=== PATIENT | female | born 1930 | race American Indian/Alaskan Native ===

== ENCOUNTER 2018-01-27 18:35 | Inpatient (IN) | payer BC, MEDICARE ==
[2018-01-27 18:59] VITALS: BMI 35.1
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
[2018-01-27 20:47] LABS: ALB/GLOB RATIO 1.3 (1.1-1.8); ALT/SGPT 84 U/L (7-56); AST/SGOT 49 U/L (14-36); BLOOD UREA NITROGEN 9 mg/dL (7-21); CALCIUM 9.6 mg/dL (8.4-10.5); GFR NON-AFRICAN AMERICAN > 60
[2018-01-28 00:50] LABS: BASO # 0.01 K/mm3 (0.0-2.0); BASO % 0.2 % (0.0-3.0); EOS # 0.1 (0.0-0.7); EOS % 2.4 % (1.5-5.0); GRAN # 1.78 (1.4-6.5); GRAN % 42.6 % (50.0-68.0); HEMOGLOBIN 12.3 g/dL (12.0-16.0); LYMPH # 1.7 (1.2-3.4); LYMPH % 41.6 % (22.0-35.0); MEAN CELL VOLUME 86.9 fl (80.0-105.0); MEAN CORPUSCULAR HEMOGLOBIN 27.7 pg (25.0-35.0); MEAN CORPUSCULAR HGB CONC 31.9 g/dl (31.0-37.0); MEAN PLATELET VOLUME 9.8 fl (7.0-11.0); MONO # 0.6 (0.1-0.6); MONO % 13.2 % (1.0-6.0); RBC 4.44 10^6/uL (3.5-6.1); RED CELL DISTRIBUTION WIDTH 13.7 % (11.5-14.5); WHITE BLOOD COUNT 4.2 10^3/ul (4.5-11.0)
[2018-01-28 02:09] LABS: URINE BILIRUBIN SMALL (NEGATIVE); URINE BLOOD TRACE-INTACT (NEGATIVE); URINE GLUCOSE (UA) NEGATIVE (NEGATIVE); URINE LEUKOCYTE ESTERASE NEGATIVE Leu/uL (NEGATIVE); URINE PROTEIN TRACE mg/dL (<30 mg/dL); URINE UROBILINOGEN 0.2 E.U./dL (<1 E.U./dL)
[2018-01-28 02:15] LABS: URINE APPEARANCE CLEAR (CLEAR); URINE COLOR YELLOW (YELLOW)
[2018-01-28 02:32] LABS: URINE BACTERIA RARE (NEG); URINE EPITHELIAL CELLS 0 - 2 /hpf (0-5); URINE RBC 0 - 2 /hpf (0-2); URINE WBC 0 - 2 /hpf (0-6)
[2018-01-28] MEDS ORDERED: Magnesium Oxide 400 mg Tab UD PO STA (05:07)
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
--- NOTE | 2018-01-28 09:52 | RAD ---
Date of service: 01/27/2018 HISTORY: medical screening COMPARISON: No prior. FINDINGS: LUNGS: No active pulmonary disease. PLEURA: No significant pleural effusion identified, no pneumothorax apparent. CARDIOVASCULAR: Normal. OSSEOUS STRUCTURES: No significant abnormalities. VISUALIZED UPPER ABDOMEN: Normal. OTHER FINDINGS: None. IMPRESSION: No active disease.
[2018-01-28 11:41] LABS: FREE T4 1.77 ng/dL (0.78-2.19)
--- NOTE | 2018-01-28 11:47 | CARD ---
APPROVED REPORT Date of service: 01/27/2018 EKG Measurement Heart [id number] <Conclusion> Sinus rhythm with 1st degree AV block Right bundle branch block Left anterior fascicular block Bifascicular block Abnormal ECG
--- NOTE | 2018-01-28 18:04 | PN ---
DATE: 01/28/2018 SUBJECTIVE: The patient is 87 years old, seen and examined, lying in bed, seems to be comfortable, but as per nurse, she is agitated, tried to get out of bed. So for now, she is on one-to-one. PHYSICAL EXAMINATION: VITAL SIGNS: She is afebrile, pulse 78, respirations 20, blood pressure 113/46. LUNGS: Bilateral fair airflow. No rhonchi or crackle. HEART: S1 and S2 audible. ABDOMEN: Soft. Nontender. No rebound. No guarding. NEUROLOGICAL: The patient is awake and alert, but confused and disoriented. LABORATORY EXAM: TSH is 0.01 and T4 is 1.77. ASSESSMENT: 1. Altered mental status. 2. Metabolic encephalopathy. 3. Dementia. 4. Hyperparathyroidism. 5. Hyperlipidemia. 6. Anxiety disorder. PLAN: Currently, the patient is on aspirin 81 daily, we will continue that. Continue her on atorvastatin, methimazole, analgesic. So I spoke to Meteorology Teacher. They will reach out to the family and make further disposition plan. Neftali Kathleen MD
--- NOTE | 2018-01-30 01:27 | PN ---
DATE: 01/29/2018 SUBJECTIVE: The patient is 87 years old, seen and examined. She is lying in bed, become agitated at times. Eating fair. PHYSICAL EXAMINATION VITAL SIGNS: She is afebrile, pulse 74, respirations 18, blood pressure 110/54. LUNGS: Bilateral fair airflow. No rhonchi or crackle. HEART: S1 and S2 audible. ABDOMEN: Soft. Nontender. No rebound. No guarding. NEUROLOGICAL: She is awake, alert, oriented, communicative. LABORATORY DATA: WBC is 4.2, hemoglobin 12, hematocrit 38, platelet 209. TSH is 0.02. Urine has no growth. ASSESSMENT: 1. Altered mental status. 2. High risk to be alone, unable to care for herself. 3. Recently has episode of urinary tract infection, was treated by antibiotics. 4. Hyperthyroidism. 5. Generalized osteoarthritis. PLAN: Discussed with social psychologist. They will speak to the family for her placement issue. Then, we will decide about her disposition plan after social psychologist discuss with the patient's family. Neftali Kathleen MD
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
--- NOTE | 2018-01-30 12:31 | PN ---
DATE: 01/30/2018 SUBJECTIVE: The patient is 87 years old, seen and examined. Seemed to be confused, disoriented. Not in any distress. PHYSICAL EXAMINATION: VITAL SIGNS: She is afebrile, pulse 66, respirations 24, blood pressure 130/70. LUNGS: Bilateral good airflow. No rhonchi or crackle. HEART: S1 and S2 audible. ABDOMEN: Soft. Nontender. No rebound. No guarding. NEUROLOGICAL: She is awake and alert, but hardly oriented to place. ASSESSMENT: 1. Worsening dementia. 2. Hypertension. 3. Hyperthyroidism. 4. Hyperlipidemia. PLAN: The patient will continue current medications. Possible discharge plan for today after Operations Logistics Analyst have meeting with the family. We will follow up the patient in the a.m. Neftali Kathleen MD
--- NOTE | 2018-01-30 16:16 | PCM.FALL ---
Post Fall Progress Note - Post Fall Fall Date: 01/30/18 Fall Time: 04:00 - Post Fall Exam Vital Sign: Temp Pulse Resp BP Pulse Ox 97.8 F 66 24 130/70 97 01/30/18 06:00 01/30/18 06:00 01/30/18 06:00 01/30/18 06:00 01/30/18 06:00 Skull Exam: Negative for: Scalp wound, Scalp hematoma, Scalp depression, Ridge in skull Eye Exam: Positive for: Pupils equal, Pupils reactive Ear Exam: Negative for: Discharge, Bleeding Nose Exam: Negative for: Discharge, Bleeding Skin Exam: Positive for: Colour. Negative for: Lacerations, Grazes, Bruising Mouth Exam: Negative for: Tongue bitten, Teeth dislodge Neck Exam: Negative for: Tenderness, Tingling, Weakness Spinal Exam: Negative for: Tenderness, Tingling, Weakness Chest Exam: Negative for: Difficulty breathing, Tenderness in collar bones, Tenderness in ribs Abdomen Exam: Negative for: Tenderness Pelvic Exam: Negative for: Tenderness, Hematuria Arm Exam: Negative for: Deformity, Alteration in range of movement Leg Exam: Negative for: Deformity, Alteration in range of movement Impression/Plan: Pt seen and examined after fall. - Fall witnessed by nurse. - Pt never experienced a LOC. - Pt did not suffer any head trauma at any time during the event. - Pt did not exhibit any seizure like activity. - pt was not confused and did not have a change in mental status Physical Exam - atraumatic, normocephalic - full neuro and MSK exam showed no deficits - AAOX2, pt not oriented to time, which is her baseline - sacral region and buttocks, no obvious signs of bruising, no pain on palpation Mechanical Fall - Neuro checks q4h for the next 20 hours - nursing informed to monitor pt for swelling, bruising, and/or pain - placed on high risk fall precautions - pt primary care physician made aware - chart reviewed, pt is not on anticoagulation- no need for imaging at this time Pineda Hernandez PGY1
--- NOTE | 2018-01-31 13:48 | PN ---
DATE: 01/31/2018 SUBJECTIVE: The patient is 87 years old, seen and examined, sitting in chair, seems to be comfortable. She is confused, disoriented, agitated at times. PHYSICAL EXAMINATION: VITAL SIGNS: She is afebrile, pulse 80, respiration 16, blood pressure 105/49. LUNGS: Bilateral good airflow. No rhonchi or crackle. HEART: S1, S2 audible. ABDOMEN: Soft, nontender. No rebound, no guarding. NEUROLOGICAL: She is awake and alert, but confused and disoriented. ASSESSMENT: 1. Severe dementia. 2. Hypertension. 3. Hyperthyroidism, stable. 4. Generalized osteoarthritis. 5. Hyperlipidemia. 6. Deconditioning. PLAN: coordinator of health services have discussion with the patient's family who wants subacute rehab long-term placement, paperwork is in the progress. Once the decision is made, we will make disposition. Neftali Kathleen MD
--- NOTE | 2018-02-01 14:09 | PN ---
DATE: 02/01/2018 SUBJECTIVE: She is comfortable in bed, in no acute distress. She is confused, disoriented. No agitation at the moment. No events overnight. No cough. No shortness of breath. No chest pain. PHYSICAL EXAMINATION: GENERAL: Comfortable in bed, in no acute distress. VITAL SIGNS: Temperature 98.7, heart rate 80 per minute, respiratory rate 15 per minute, blood pressure 110/70. HEENT: Pallor positive. NECK: No lymphadenopathy. CHEST: Air entry present and equal, bilateral. No added sounds. CARDIOVASCULAR: S1, S2 normal. No murmur. No gallop. ABDOMEN: Soft, nontender. No hepatosplenomegaly. EXTREMITY: No edema. NEURO: Awake, alert, not oriented, confused. LABORATORY DATA: Labs reviewed. White count 4.2, hemoglobin 12.3, hematocrit 38.6, platelet 209, granulocyte 42%, lymphocyte 41%. ASSESSMENT: 1. Severe dementia. 2. Hypertension. 3. Osteoarthritis. 4. Deconditioning. 5. Leukopenia. 6. Lymphocytosis. PLAN: We will continue current medications, Xanax 0.25 mg p.o. t.i.d. p.r.n. for agitation, Lipitor 20 mg daily, aspirin to continue 81 mg daily, senna, Colace, lorazepam IV for agitation, Topamax 10 mg p.o. daily. She is awaiting placement. [employer] contacted. Discussed with the staff nurse. Leslye Hansen MD
[2018-02-01] MEDS: Petrolatum Oint Foilpak (5 gm) TOP ONE (18:48)
[2018-02-02] MEDS: Petrolatum Oint Foilpak (5 gm) TOP ONE (01:57)
--- NOTE | 2018-02-02 17:54 | PN ---
DATE: 02/02/2018 SUBJECTIVE: Patient is 87 years old, seen and examined, sitting in chair, seems to be comfortable, gets agitated at times, confused, disoriented, does not have insight of her problem. PHYSICAL EXAMINATION: VITAL SIGNS: She is afebrile, pulse 77, respirations 20, blood pressure 115/73. LUNGS: Bilateral fair airflow. No rhonchi or crackle. HEART: S1 and S2 audible. ABDOMEN: Soft, nontender. No rebound. No guarding. NEUROLOGIC: She is awake and alert, but not oriented. Answers simple questions. ASSESSMENT: 1. Altered mental status. 2. Hypertension. 3. Hyperthyroidism. 4. Deconditioning. 5. Difficulty walking. PLAN: We will continue patient on current medications, social services assistant are in the process of placement, and there will be discussion with the patient's family once the arrangement is made make a discharge plan. Neftali Kathleen MD
--- NOTE | 2018-02-03 13:12 | PN ---
DATE: 02/03/2018 SUBJECTIVE: The patient is 87 years old, seen and examined, lying in bed, seems to be comfortable. Confused, disoriented, agitated at times. PHYSICAL EXAMINATION: VITAL SIGNS: She is afebrile, pulse 74, respirations 18, blood pressure 122/51. LUNGS: Bilateral fair airflow. No rhonchi or crackle. HEART: S1 and S2 audible. ABDOMEN: Soft. Nontender. No rebound. No guarding. NEUROLOGICAL: She is awake and alert, but confused and disoriented. ASSESSMENT: 1. Advanced dementia. 2. Hypertension. 3. History of chronic anemia. 4. Hyperthyroidism. 5. Hyperlipidemia. PLAN: We will continue the patient on current medication. [employer] are in the process of making arrangement for placement. Neftali Kathleen MD
--- NOTE | 2018-02-04 17:03 | PN ---
DATE: 02/04/2018 FOLLOWUP SUBJECTIVE: Requested by primary team because the patient was on haloperidol, which was initiated by Dr. Gonzales over initial evaluation and possible adjustment of the medications. The patient presented to be less confused to compare with the previous interaction. The patient knows that she is in the hospital. The patient does not know what is the day today. The patient reported that she feels okay. Denied any thoughts of killing herself or others. The patient reported that she has a headache. Besides that, the patient expressed no concerns. No agitation. No aggression. Vital signs are stable. Temperature 97.8, pulse is 72, blood pressure 113/56, respirations 20, oxygen saturation is 97. Medications reviewed. The patient is on Tylenol, Xanax, aspirin, Lipitor, Colace, Ativan and methimazole. Labs reviewed. Most recent was from 01/28/2018. MENTAL STATUS EXAMINATION: The patient presented to be alert, pleasant, intermittent eye contact. Speech was underproductive, low volume. Mood described as okay. Affect was constricted, but reactive. Mood congruent. Thought process mildly disorganized, but the patient is not acutely psychotic. The patient denied hearing voices, denied seeing things. Denied paranoid ideation. The patient denied any thoughts of harming herself or others. Denied intents or plan. Insight and judgment seems to be limited. Impulses are well controlled. IMPRESSION: Delirium and dementia. PLAN: This selling underwriter will discontinue haloperidol. We will observe the patient with no antipsychotic medications. The patient presented to be comfortable. No agitation. No aggression. We will follow up and advise accordingly. No need for this selling underwriter to see the patient on daily basis. We will see the patient every other day. If the patient tolerates discontinuation of the haloperidol well, the patient does not need to be on antipsychotic medication. If the patient will become agitated or the patient would have any psychotic symptoms, we will consider the smallest dose of Seroquel. Thank you very much for letting me participate in the care of your patient. Mckenna Stahl MD
--- NOTE | 2018-02-04 23:00 | PN ---
DATE: 02/04/2018 SUBJECTIVE: The patient is an 87-year-old, seen and examined, resting in the bed comfortably, gets agitated at times. Paper work in progress for subacute rehab to long-term placement. PHYSICAL EXAMINATION: VITAL SIGNS: She is afebrile, pulse 72, respirations 20, blood pressure 113/56. LUNGS: Bilateral fair airflow. No rhonchi or crackle. HEART: S1 and S2 audible. ABDOMEN: Soft, nontender. No rebound. No guarding. NEUROLOGIC: The patient is awake and alert, but confused and disoriented. ASSESSMENT AND PLAN: 1. Severe dementia. 2. Hypertension. 3. Deconditioning. 4. Difficulty walking. PLAN: We will continue patient on current medications and continue physical therapy. human resources services specialist are in the process of making arrangement for discharging to subacute rehab. Neftali Kathleen MD
--- NOTE | 2018-02-05 12:27 | PN ---
DATE: 02/05/2018 SUBJECTIVE: The patient is 87 years old, seen and examined, sitting in chair. Seems to be comfortable. Gets agitated at times at the nurse. Otherwise, doing well. PHYSICAL EXAMINATION: VITAL SIGNS: She is afebrile, pulse 70, respirations 18, blood pressure 109/56. LUNGS: Bilateral fair airflow. No rhonchi or crackle. HEART: S1 and S2 audible. ABDOMEN: Soft. Nontender. No rebound. No guarding. NEUROLOGICAL: She is awake and alert, but confused and disoriented. ASSESSMENT: 1. Severe dementia with agitation at times. 2. Hypertension. 3. Hyperlipidemia. PLAN: Currently, the patient is on aspirin 81 daily. We will continue her on Colace, Lipitor. She has a history of hyperthyroidism, so she is on Tapazole for that. We will continue. [employer] are in the process of making arrangement for subacute rehab . Neftali Kathleen MD
[2018-02-05 15:20] VITALS: RESP 20
--- NOTE | 2018-02-06 00:54 | PCM.FALL ---
<Deb Wylie - Last Filed: 02/06/18 00:49> Post Fall Progress Note - Post Fall Fall Date: 02/06/18 Fall Time: 00:38 Description of Fall: Patient was confused, and went down gently on her bilateral buttock to the floor. 2 nurses, Nicole and Alexis, witnessed the falls. No seizure likely activity, LOC. Patient awake, answering questions, oriented to self only (but that is patient's baseline). Denies pain, dizziness. - Post Fall Exam Vital Sign: Temp Pulse Resp BP Pulse Ox 97.6 F 87 20 148/68 98 02/05/18 14:00 02/05/18 14:00 02/05/18 14:00 02/05/18 14:00 02/05/18 14:00 Skull Exam: Negative for: Scalp wound, Scalp hematoma, Scalp depression Eye Exam: Positive for: Pupils equal, Pupils reactive Ear Exam: Negative for: Discharge, Bleeding Nose Exam: Negative for: Discharge, Bleeding Skin Exam: Negative for: Colour, Lacerations, Grazes Mouth Exam: Negative for: Tongue bitten, Teeth dislodge Neck Exam: Negative for: Tenderness, Weakness Spinal Exam: Negative for: Tenderness, Weakness Chest Exam: Negative for: Difficulty breathing, Tenderness in collar bones, Tenderness in ribs Abdomen Exam: Negative for: Tenderness Pelvic Exam: Negative for: Tenderness, Hematuria Arm Exam: Negative for: Deformity, Alteration in range of movement Leg Exam: Negative for: Deformity, Alteration in range of movement Impression/Plan: 87 year old female who was admitted for worsening dementia (not on AC), had a witnessed fall. As per staff, patient has been agitated, trying to get out of bed. Patient then gently lowered self to floor, landing on her buttocks. No hitting head, LOC, shaking movements of body, tongue biting. Patient is alert, awake, oriented to self only (baseline as per staff/prior notes). High risk fall precautions. Will give Haldol 0.5 mg IM. And reassess. Case seen and discussed with Dr Yeung. <Cristhian Yeung - Last Filed: 02/06/18 22:34> Post Fall Progress Note - Post Fall Exam Vital Sign: Temp Pulse Resp BP Pulse Ox 97.4 F L 74 20 110/49 L 99 02/06/18 14:00 02/06/18 14:00 02/06/18 14:00 02/06/18 14:00 02/06/18 14:00 Attending/Attestation - Attestation I have personally seen and examined this patient.: Yes I have fully participated in the care of the patient.: Yes I have reviewed all pertinent clinical information, including history, physical exam and plan: Yes
--- NOTE | 2018-02-06 11:10 | PN ---
DATE: 02/06/2018 SUBJECTIVE: The patient was followed up today. Shortly, medical team asked to reconsult this patient because the patient was on Haldol and nursing homes will be not accepting the patient on that medication. The patient's haloperidol was on hold. This information writer observed the patient for 24 hours. The patient had episodes of agitation as well as confusion, trying to climb off the bed. At present moment, the patient needs to be on antipsychotic medication in order to make sure that the patient will be not in danger to self or others. This information writer reviewed the notes from overnight. The patient tried to climb off the bed and almost fell. The patient was seen today. The patient presented to be tearful. The patient confused, talking nonsense. The patient is not aware where she is. Asked extra blankets. Vital signs seems to be stable. Temperature 97.6, pulse is 87, blood pressure 148/68, respirations 20, oxygen saturation is 98. Medications reviewed. The patient is on Tylenol, Xanax 0.25 mg three times a day as needed. The patient is on aspirin, Lipitor, Colace, Ativan, Tapazole. Seroquel will be given as 12.5 mg at the nighttime as needed for agitation. Labs were reviewed. Notes were reviewed. Most likely, the patient needs to have placement. [facility] accepted the patient. MENTAL STATUS EXAMINATION: The patient presented to be alert, tearful, talking nonsense, but not agitated. Thought process seems to be circumstantial. Thought content, the patient denied hearing voices, denied seeing things, but the patient is confused. Denied thoughts of harming herself or others. Insight and judgment seemed to be impaired. Impulses are better controlled. IMPRESSION: Delirium on dementia. PLAN: Seroquel 12.5 mg at the nighttime as needed for agitation and aggression. Continue current management. Continue current medications. The patient is waiting for bed available at [facility]. The patient pose no imminent danger to self or others. The patient needs to be followed up with psychiatrist at the snf within 48-72 hours. Should you have any questions, give me a call back. This information writer will sign off. Mckenna Stahl MD [facility] # [phone]
[2018-02-06 14:28] VITALS: BP 110/49; PULSE 74; TEMP 97.4; O2SAT 99
--- NOTE | 2018-02-07 07:21 | DS ---
HISTORY OF PRESENT ILLNESS: The patient is 87 years old who was admitted with altered mental status. The patient was evaluated by psychiatrist. She was started on Seroquel 12.5 at bedtime and Xanax as needed. human services case manager were involved to send her to subacute rehab to going to long-term placement. There was back and forth discussion with daughter, Meng Nelson by but they found placement in outside the town, but the patient's daughter did not like that idea and she decided eventually to take her home. PHYSICAL EXAMINATION: GENERAL: Today, she is awake, alert, oriented and agitated at times. VITAL SIGNS: She is afebrile, pulse 74, respirations 20 and blood pressure 110/49. LUNGS: Bilateral good airflow. No rhonchi or crackle. HEART: S1 and S2 audible. ABDOMEN: Soft and nontender. No rebound. No guarding. NEUROLOGICAL: The patient is awake and alert, but not oriented. ASSESSMENT: 1. Dementia. 2. Unstable gait. 3. Hyperthyroidism. PLAN: The patient is being discharged home. She was given prescription of Seroquel 12.5 at bedtime, Xanax 0.25 t.i.d. p.r.n. for agitation, and she resume her medication including methimazole and simvastatin. I will follow this patient as outpatient. Neftali Kathleen MD
== END 2018-02-06 20:25 | disposition home or self-care (01) | DRG 884 ==
LOC: ED 18:35 → ERH 22:10 → 5RNO 01-28 06:41
PROVIDERS: ADMIT Internal Medicine; ATTEND Internal Medicine
DX: F03.91 Unspecified dementia, unspecified severity, with behavioral disturbance (principal); G93.41 Metabolic encephalopathy; F05 Delirium due to known physiological condition; Z91.83 Wandering in diseases classified elsewhere; I10 Essential (primary) hypertension; E78.5 Hyperlipidemia, unspecified; R26.2 Difficulty in walking, not elsewhere classified; E21.3 Hyperparathyroidism, unspecified; F41.9 Anxiety disorder, unspecified; M15.9 Polyosteoarthritis, unspecified; R45.1 Restlessness and agitation; E05.90 Thyrotoxicosis, unspecified without thyrotoxic crisis or storm; Z91.81 History of falling; Z87.440 Personal history of urinary (tract) infections

== ENCOUNTER 2018-02-10 18:31 | Inpatient (IN) | payer MEDICARE ==
[2018-02-10 19:12] VITALS: BMI 23.4
--- NOTE | 2018-02-10 20:38 | ED PDOC ---
Arrival/HPI - General Chief Complaint: Chest Pain Time Seen by Provider: 02/10/18 19:43 Historian: Patient - History of Present Illness Narrative History of Present Illness (Text): 02/10/18 20:00 87 year old female, whose past medical history includes dementia, presents to the emergency department complaining of intermittent left-sided lower chest discomfort since this morning. Patient reports some radiation to the left back. She denies any complaints at the present time. Patient denies any fever, chills, shortness of breath, nausea, vomiting, diarrhea, urinary symptoms, neck pain, headache, dizziness, or any other complaints. PMD: Dr. Kathleen Time/Duration: Other (this morning) Symptom Onset: Sudden Activities at Onset: Light Context: Home Past Medical History - Provider Review Nursing Documentation Reviewed: Yes - Infectious Disease Hx of Infectious Diseases: None - Reproductive Menopause: Yes - Cardiac Hx Cardiac Disorders: Yes Hx Hypertension: Yes - Pulmonary Hx Respiratory Disorders: Yes Hx Bronchitis: Yes - Neurological Hx Neurological Disorder: Yes Hx Dementia: Yes - HEENT Hx HEENT Disorder: No - Renal Hx Renal Disorder: No - Endocrine/Metabolic Hx Endocrine Disorders: Yes Hx Hypothyroidism: Yes - Hematological/Oncological Hx Blood Disorders: No - Integumentary Hx Dermatological Disorder: No - Musculoskeletal/Rheumatological Hx Musculoskeletal Disorders: Yes Hx Arthritis: Yes - Gastrointestinal Hx Gastrointestinal Disorders: No - Genitourinary/Gynecological Hx Genitourinary Disorders: Yes Hx Urinary Tract Infection: Yes (Current) - Psychiatric Hx Psychophysiologic Disorder: Yes Hx Anxiety: Yes Hx Depression: Yes Hx Substance Use: No - Surgical History Hx Appendectomy: Yes Other/Comment: ear - Anesthesia Hx Anesthesia: Yes Hx Anesthesia Reactions: No - Suicidal Assessment Feels Threatened In Home Enviroment: No Family/Social History - Physician Review Nursing Documentation Reviewed: Yes Family/Social History: No Known Family HX Smoking Status: Never Smoked Hx Alcohol Use: No Hx Substance Use: No Allergies/Home Meds Allergies/Adverse Reactions: Allergies dust Allergy (Uncoded 02/11/18 00:11) SHORTNESS OF BREATH seasonal Allergy (Uncoded 02/11/18 00:11) SHORTNESS OF BREATH Home Medications: Home Meds Medication Instructions Recorded Confirmed RX: Alprazolam 0.5 mg PO PRN PRN 04/02/13 02/11/18 RX: Aspirin [Aspirin Chewable] 81 mg PO DAILY 04/02/13 02/11/18 RX: Docusate Sodium [Stool 100 mg PO PRN PRN 04/02/13 02/11/18 Softener] RX: Methimazole 10 mg PO DAILY 04/02/13 02/11/18 RX: Simvastatin 40 mg PO DAILY 04/02/13 02/11/18 Review of Systems - Physician Review All systems were reviewed & negative as marked: Yes - Review of Systems Constitutional: absent: Fevers, Other (Chills) Respiratory: absent: SOB Cardiovascular: Chest Pain Gastrointestinal: absent: Diarrhea, Nausea, Vomiting Genitourinary Female: absent: Dysuria, Frequency, Hematuria Musculoskeletal: Back Pain. absent: Neck Pain Neurological: absent: Headache, Dizziness Physical Exam Vital Signs Reviewed: Yes Vital Signs Temp Pulse Resp BP Pulse Ox 02/10/18 19:06 98.4 F 83 18 148/86 97 Temperature: Afebrile Blood Pressure: Normal Pulse: Regular Respiratory Rate: Normal Appearance: Positive for: Well-Appearing, Non-Toxic, Comfortable, Other (Elderly female) Pain Distress: None Mental Status: Positive for: Alert and Oriented X 3 - Systems Exam Head: Present: Atraumatic, Normocephalic Pupils: Present: PERRL Extroacular Muscles: Present: EOMI Conjunctiva: Present: Normal Mouth: Present: Moist Mucous Membranes Neck: Present: Normal Range of Motion Respiratory/Chest: Present: Clear to Auscultation, Good Air Exchange. No: Respiratory Distress, Accessory Muscle Use Cardiovascular: Present: Regular Rate and Rhythm, Normal S1, S2. No: Murmurs Abdomen: No: Tenderness, Distention, Peritoneal Signs Back: Present: Normal Inspection. No: CVA Tenderness Upper Extremity: Present: Normal Inspection. No: Cyanosis, Edema Lower Extremity: Present: Normal Inspection. No: Edema Neurological: Present: GCS=15, CN II-XII Intact, Speech Normal, Motor Func Grossly Intact, Normal Sensory Function Skin: Present: Warm, Dry, Normal Color. No: Rashes Psychiatric: Present: Alert, Oriented x 3, Normal Insight, Normal Concentration Medical Decision Making ED Course and Treatment: 02/10/18 20:00 Impression: 87 year old female presents complaining of intermittent left-sided chest discomfort since this morning with some radiation to the left back. Plan: -- EKG -- Labs -- Chest X-ray -- Urinalysis -- Reassess and disposition Prior Visits: Notes and results from previous visits were reviewed. Patient was last seen in the emergency department on 01/27/18 presents complaining of AMS, excessive sleepiness, and worsening combative behavior. Patient was admitted. Progress Notes: 02/10/18 20:49 CXR Impression: As read by me, no acute process. 02/10/18 22:02 EKG shows NSR at 87 BPM with first degree AV Block, incomplete RBBB, nonspecific ST/T wave changes. Interpreted by me. 02/10/18 23:[address] Kathleen who is aware and agrees with the plan. Accepts patient into her service. - Lab Interpretations I have reviewed the lab results: Yes - RAD Interpretation Radiology Orders: 02/10/18 20:26 CHEST PORTABLE [RAD] Stat - EKG Interpretation Interpreted by ED Physician: Yes Type: 12 lead EKG - Scribe Statement The provider has reviewed the documentation as recorded by the Pat Toney Provider Scribe Attestation: All medical record entries made by the Pat were at my direction and personally dictated by me. I have reviewed the chart and agree that the record accurately reflects my personal performance of the history, physical exam, medical decision making, and the department course for this patient. I have also personally directed, reviewed, and agree with the discharge instructions and disposition. Disposition/Present on Arrival - Present on Arrival Any Indicators Present on Arrival: No History of DVT/PE: No History of Uncontrolled Diabetes: No Urinary Catheter: No History of Decub. Ulcer: No History Surgical Site Infection Following: None - Disposition Have Diagnosis and Disposition been Completed?: Yes Diagnosis: Chest pain Disposition: HOSPITALIZED Disposition Time: 23:09 Patient Problems: Current Active Problems Problem Status Onset Chest pain Acute Condition: STABLE
[2018-02-10 21:44] LABS: HEMOGLOBIN 13.9 g/dL (12.0-16.0); MEAN CELL VOLUME 87.6 fl (80.0-105.0); MEAN CORPUSCULAR HEMOGLOBIN 28.3 pg (25.0-35.0); MEAN CORPUSCULAR HGB CONC 32.3 g/dl (31.0-37.0); MEAN PLATELET VOLUME 10.1 fl (7.0-11.0); RBC 4.91 10^6/uL (3.5-6.1); RED CELL DISTRIBUTION WIDTH 13.8 % (11.5-14.5); WHITE BLOOD COUNT 4.8 10^3/uL (4.5-11.0)
[2018-02-10 21:56] LABS: PARTIAL THROMBOPLASTIN TIME 31.9 Seconds (25.1-36.5); PROTHROMBIN TIME 11.4 SECONDS (9.4-12.5)
[2018-02-10 22:04] LABS: ALB/GLOB RATIO 1.2 (1.1-1.8); ALBUMIN 4.3 g/dL (3.0-4.8); ALT/SGPT 23 U/L (7-56); AST/SGOT 24 U/L (14-36); BLOOD UREA NITROGEN 13 mg/dL (7-21); CALCIUM 9.6 mg/dL (8.4-10.5); GFR NON-AFRICAN AMERICAN > 60
[2018-02-10 22:36] LABS: TROPONIN I < 0.01 ng/mL
[2018-02-11 07:00] LABS: TROPONIN I < 0.01 ng/mL
[2018-02-11 09:49] LABS: HDL CHOLESTEROL 44 mg/dL (29-60)
[2018-02-11 10:00] LABS: LDL CHOLESTEROL 101 mg/dL (0-129)
--- NOTE | 2018-02-11 11:38 | RAD ---
Date of service: 02/10/2018 HISTORY: Back pain COMPARISON: 01/27/2018 FINDINGS: LUNGS: No active pulmonary disease. PLEURA: No significant pleural effusion identified, no pneumothorax apparent. CARDIOVASCULAR: Cardiomegaly. No evidence of acute, significant cardiovascular disease. Atherosclerotic calcifications identified primarily aortic arch. OSSEOUS STRUCTURES: No significant abnormalities. VISUALIZED UPPER ABDOMEN: Normal. OTHER FINDINGS: Prominent skin fold should not be mistaken for small right pneumothorax. IMPRESSION: No active disease. No significant interval change compared to the prior examination(s).
--- NOTE | 2018-02-11 12:02 | CARD ---
APPROVED REPORT Date of service: 02/10/2018 EKG Measurement Heart [id number] <Conclusion> Sinus rhythm with 1st degree AV block Right bundle branch block Left anterior fascicular block Abnormal ECG
[2018-02-11 14:00] LABS: TROPONIN I < 0.01 ng/mL
--- NOTE | 2018-02-11 15:19 | HP ---
HISTORY OF PRESENT ILLNESS: The patient is an 87-year-old who was brought to emergency room when she mentioned to her daughter that she is having left-sided chest pain. The patient is confused and disoriented. She was recently discharged after she was found to have altered mental status. Family requested for long-term placement but later on they decided to take her home. When I examined the patient, she is chest pain free, she is sitting comfortably asking for food. She does not have any nausea or vomiting. No fever or chills. No shortness of breath. PAST MEDICAL HISTORY: Significant for: 1. Severe dementia. 2. Hypertension. 3. Hypothyroidism. 4. Generalized osteoarthritis. ALLERGIES: SHE HAS SEASONAL ALLERGIES ONLY. MEDICATIONS AT HOME: She is on aspirin 81 mg daily, Colace 100 mg daily, atorvastatin 20 mg daily. She is on Seroquel 12.5 at bedtime, methimazole 10 mg daily and Xanax t.i.d. p.r.n. PHYSICAL EXAMINATION: GENERAL: On examination, she is awake, alert and oriented. She states she is hungry and wants to eat. VITAL SIGNS: She is afebrile, pulse 77, respirations 20, blood pressure 129/57. LUNGS: Bilateral fair airflow. No rhonchi or crackle. HEART: S1, S2 audible. ABDOMEN: Soft, nontender. No rebound. No guarding. NEUROLOGIC: The patient is awake and alert, confused, disoriented. EXTREMITIES: Bilateral legs, no edema. LABORATORY DATA: WBC 4.8, hemoglobin 13.9, hematocrit 43.0, platelets 235. PT 11.4, INR 1.00. Chemistry: Sodium 141, potassium 4.0, chloride 104, CO2 of 29, BUN 13, creatinine 0.7, blood sugar 197. LFTs are within normal limits. Her total cholesterol 155, LDL is 101. ASSESSMENT: 1. Severe dementia. 2. Noncardiac chest pain. 3. History of hypertension. 4. . PLAN: The patient has two troponins negative, I will order one stat. If third is negative, she will be discharged home later on today. Neftali Kathleen MD
--- NOTE | 2018-02-11 15:51 | CON ---
DATE: 02/11/2018 TYPE OF DICTATION: Cardiac evaluation, questionable history of chest pain. BRIEF CLINICAL HISTORY: An 87-year-old female with a past medical history significant for hyperlipidemia, hyperthyroidism, yesterday felt not good. She denies any chest pain, denies any shortness of breath, denies any palpitations. She called the daughter, and daughter called the ambulance. Though in ER note it is mentioned that the patient was complaining of intermittent chest pain, but the patient persistently denies any chest pain. PAST MEDICAL HISTORY: Significant as mentioned, hypertension and hyperthyroidism. SOCIAL HISTORY: Denies any history of alcohol abuse. CURRENT MEDICATIONS: The patient is taking at home , aspirin 81 mg daily and Xanax 0.5 p.r.n. at bedtime. Tylenol 325 mg p.r.n., simvastatin 40 mg daily, Seroquel 12.5 mg daily, methimazole 10 mg daily, Colace stool softener 100 mg p.o. b.i.d. p.r.n. ALLERGIES: ALLERGY TO DUST, ALLERGY TO SEASONAL. PAST SURGICAL HISTORY: No surgical history. FAMILY HISTORY: Noncontributory at this stage of the life. EKG shows normal sinus, right bundle-branch block, incomplete, and anterior hemiblock. PHYSICAL EXAMINATION GENERAL: Height of the patient is 5 feet, weight of the patient is 120 pounds, and body mass index is 23.4 kg per meter square. VITAL SIGNS: Heart rate 77, blood pressure 129/77. HEENT: PERRLA. Extraocular muscles intact. NECK: Supple. No carotid bruits or thyromegaly. CHEST: Clear to auscultation. HEART: S1 and S2 regular. ABDOMEN: Soft. EXTREMITIES: Clubbing and cyanosis negative. LABORATORY DATA: WBC 4.8, hemoglobin 13.8, hematocrit of 43.0, platelet count 235. PT 11.5, INR 1. Chemistry showed sodium 141, potassium 4, chloride 104, carbon dioxide 20, anion gap of 12, BUN 13, creatinine 0.7. Troponin 0.01 x2, negative. IMPRESSION: An 87-year-old female admitted because of not feeling good. EKG showed normal sinus, incomplete right bundle, anterior hemiblock. The patient is persistently refusing any history of chest pain, though ER documentation mentioned the patient was complaining of intermittent chest pain. X-ray showed essentially normal, question mild congestion, though it is under . An 87-year-old female with borderline hypertension, hyperthyroidism, hyperlipidemia, admitted with nonspecific complaint, needs to rule out HI. First troponin is negative. We will do one troponin now and one troponin at 2 p.m. We will get echo to assess LV function, a lipid profile, TSH, hemoglobin A1c. Further recommendation depending upon hospital course. We will follow with you. Thank you, Dr. Kathleen, for providing us the opportunity in taking care of the patient, Juan Jose Dobson. Kirstie Murillo MD
--- NOTE | 2018-02-11 18:31 | CARD ---
APPROVED REPORT Date of service: 02/11/2018 EXAM: Two-dimensional and M-mode echocardiogram with Doppler and color Doppler. INDICATION Chest Pain 2D DIMENSIONS Left Atrium (2D)3.0 (1.6-4.0cm)IVSd1.1 (0.7-1.1cm) LVDd3.2 (3.9-5.9cm)PWd1.1 (0.7-1.1cm) LVDs2.2 (2.5-4.0cm)FS (%) 31.2 % LVEF (%)60.2 (>50%) M-Mode DIMENSIONS Aortic Root1.90 (2.2-3.7cm)Aortic Cusp Exc.1.20 (1.5-2.0cm) Aortic Valve AoV Peak Wokywlvt292.0cm/Juventino Peak GR.16mmHg Mitral Valve MV E Fifmzxsa753.0cm/sMV A Darhaefz130.0cm/sE/A ratio0.8 TDI E/Lateral E'0.0E/Medial E'0.0 Tricuspid Valve TR Peak [id number]/sRAP [id number] Peak Gr.36mmHg [id number] LEFT VENTRICLE The left ventricle is normal size. There is normal left ventricular wall thickness. The left ventricular function is normal.EF-60-65% There is normal LV segmental wall motion. Transmitral Doppler flow pattern is Grade III-reversible restrictive diastolic dysfunction. No left ventricle thrombus noted on this study. There is no ventricular septal defect visualized. There is no left ventricular aneurysm. There is no mass noted in the left ventricle. RIGHT VENTRICLE The right ventricle is mildly dilated. There is normal right ventricular wall thickness. Systolic function is mildly reduced. ATRIA The left atrium size is normal. The right atrium is borderline dilated. The interatrial septum is intact with no evidence for an atrial septal defect. AORTIC VALVE The aortic valve is calcified but opens well. There is trace to mild aortic regurgitation, eccentric Jet. Aortic sclerosis VS Mild There is no aortic valvular vegetation. MITRAL VALVE The mitral valve is thickened but opens well. Mitral annular calcification is mild to moderate. Mitral regurgitation is trace to mild. There is no mitral valve stenosis. There is no evidence of mitral valve prolapse. TRICUSPID VALVE The tricuspid valve leaflets are thickened , but open well. There is moderate tricuspid regurgitation.RVSP_46 mmof hg. There is no tricuspid valve stenosis. There is no tricuspid valve prolapse or vegetation. PULMONIC VALVE The pulmonic valve is mildly thickened. There is mild to moderate pulmonic valvular regurgitation. There is no pulmonic valvular stenosis. GREAT VESSELS The aortic root is normal in size. The ascending aorta is normal in size. The pulmonary artery is normal. The IVC is normal in size and collapses >50% with inspiration. PERICARDIAL EFFUSION There is no pleural effusion. There is no pericardial effusion. <Conclusion> There is normal left ventricular wall thickness. There is trace to mild aortic regurgitation, eccentric Jet. Aortic sclerosis VS Mild There is moderate tricuspid regurgitation.RVSP_46 mmof hg. There is mild to moderate pulmonic valvular regurgitation. The IVC is normal in size and collapses >50% with inspiration. There is no pericardial effusion.
--- NOTE | 2018-02-12 08:47 | CP.PCM.PN ---
Subjective - Date & Time of Evaluation Date of Evaluation: 02/12/18 Time of Evaluation: 06:45 - Subjective Subjective: Awake, alert, confuse, feels cold, no distress Reason for consultation and follow up: Cardiac evaluation of intermittent chest discomfort questionable chest pain, history of dementia Seen and examined by me and Dr. Murillo Objective - Vital Signs/Intake and Output Vital Signs (last 24 hours): Temp Pulse Resp BP Pulse Ox 97.4 F L 66 18 112/61 96 02/12/18 06:00 02/12/18 06:00 02/12/18 06:00 02/12/18 06:00 02/12/18 06:00 Intake and Output: 02/12/18 02/12/18 06:59 18:59 Intake Total 0 Balance 0 - Medications Medications: Current Medications Alprazolam (Xanax) 0.25 mg PO TID PRN; Protocol PRN Reason: Anxiety Stop: 02/18/18 10:01 Last Admin: 02/11/18 10:16 Dose: 0.25 mg Aspirin (Aspirin Chewable) 81 mg PO DAILY [facility] Last Admin: 02/11/18 10:16 Dose: 81 mg Atorvastatin Calcium (Lipitor) 20 mg PO DIN [facility] Last Admin: 02/11/18 18:34 Dose: Not Given Docusate Sodium (Colace) 100 mg PO DAILY [facility] Last Admin: 02/11/18 10:16 Dose: 100 mg Methimazole (Tapazole) 10 mg PO DAILY [facility] Last Admin: 02/11/18 10:16 Dose: 10 mg Quetiapine Fumarate (Seroquel) 12.5 mg PO HS [facility]; Protocol - Labs Labs: 02/10/18 21:30 02/10/18 21:30 PT 11.4 SECONDS (9.4-12.5) 02/10/18 21:30 INR 1.00 02/10/18 21:30 APTT 31.9 Seconds (25.1-36.5) 02/10/18 21:30 - Constitutional Appears: Non-toxic, No Acute Distress - Head Exam Head Exam: NORMAL INSPECTION, NORMOCEPHALIC - Eye Exam Eye Exam: Normal appearance Pupil Exam: NORMAL ACCOMODATION - ENT Exam ENT Exam: Mucous Membranes Dry - Respiratory Exam Respiratory Exam: Decreased Breath Sounds, Clear to Ausculation Bilateral, NORMAL BREATHING PATTERN - Cardiovascular Exam Cardiovascular Exam: REGULAR RHYTHM, +S1, +S2 Additional comments: Telemetry NSR - GI/Abdominal Exam GI & Abdominal Exam: Soft, Normal Bowel Sounds - Extremities Exam Extremities Exam: Full ROM - Neurological Exam Neurological Exam: Alert, Awake Additional comments: confuse - Psychiatric Exam Psychiatric exam: Normal Affect, Normal Mood - Skin Skin Exam: Dry, Normal Color, Warm Assessment and Plan - Assessment and Plan (Free Text) Assessment: A 87 year old female who came in to the ER due to intermittent left side chest d iscomfort started cook's assistant prior to admission. History of dementia, hypertension,hyperlipidemia, hypothyroidism,osteoarthritis. Troponin x 3 negative. Rule out acute myocardial infarction. ECHO done- LVEF 60%, Mild aortic regurgitation, Aortic sclerosis vs Mild , Moderate tricuspid regurgi tation,Moderate pulmonic valvular regurgitation, No pericardial effusion. Chest pain free. Plan: ECHO done- LVEF 60% Mild aortic regurgitation, Aortic sclerosis vs Mild Moderate tricuspid regurgitation Moderate pulmonic valvular regurgitation No pericardial effusion Troponin negative x 3 Heart rate controlled Blood pressure controlled Denies chest pain or shortness of breath May discharge from cardiac standpoint Continue current treatment Continue current medications Chart reviewed Will follow up Plan and treatment discussed with Dr. Murillo
[2018-02-12 12:49] LABS: HEMOGLOBIN 11.7 g/dL (12.0-16.0); MEAN CELL VOLUME 85.7 fl (80.0-105.0); MEAN CORPUSCULAR HEMOGLOBIN 27.8 pg (25.0-35.0); MEAN CORPUSCULAR HGB CONC 32.4 g/dl (31.0-37.0); MEAN PLATELET VOLUME 9.6 fl (7.0-11.0); RBC 4.21 10^6/uL (3.5-6.1); RED CELL DISTRIBUTION WIDTH 13.3 % (11.5-14.5); WHITE BLOOD COUNT 3.3 10^3/uL (4.5-11.0)
[2018-02-12 12:50] LABS: ALB/GLOB RATIO 1.1 (1.1-1.8); ALBUMIN 3.6 g/dL (3.0-4.8); ALT/SGPT 26 U/L (7-56); AST/SGOT 25 U/L (14-36); BLOOD UREA NITROGEN 11 mg/dL (7-21); CALCIUM 9.3 mg/dL (8.4-10.5); GFR NON-AFRICAN AMERICAN > 60
--- NOTE | 2018-02-12 14:40 | PN ---
DATE: 02/12/2018 HISTORY OF PRESENT ILLNESS: The patient is 87 years old, seen and examined, seems to be comfortable now; but according to nurse last night, she was very agitated, throwing things, yelling, screaming.shay dyer was called and she had to be restrained for her and other te herrera Got in touch with her daughter who is asking for long-term placement, although she refused last time. The patient was initially admitted with chest pain. Her workup is negative. PHYSICAL EXAMINATION: GENERAL: On examination, she looks comfortable now. VITAL SIGNS: She is afebrile, pulse , respirations 18, and blood pressure 112/61. LUNGS: Bilateral fair airflow. No rhonchi or crackles. HEART: S1 and S2 audible. ABDOMEN: Soft and nontender. No rebound. No guarding. NEUROLOGIC: She is awake and alert, but confused and disoriented. LABORATORY DATA: Her LDH is 382, CK is 37, and troponin is 0.07. ASSESSMENT: 1. Dementia with confusion and agitation. 2. Noncardiac chest pain. 3. Hypothyroidism. 4. Hypertension. PLAN: The patient is being admitted. We will discontinue telemetry. Start her on Risperdal in the morning around 6 o'clock and she will get therapy at night. resident services manager are arranged for long-term placement. Neftali Kathleen MD MTDDebbie
[2018-02-12] MEDS: Enoxaparin 30 mg Syringe SC SCH (18:23)
[2018-02-12 20:47] LABS: URINE BILIRUBIN NEGATIVE (NEGATIVE); URINE BLOOD NEGATIVE (NEGATIVE); URINE GLUCOSE (UA) NEGATIVE (NEGATIVE); URINE LEUKOCYTE ESTERASE NEGATIVE Leu/uL (NEGATIVE); URINE PROTEIN NEGATIVE mg/dL (<30 mg/dL); URINE UROBILINOGEN 0.2 E.U./dL (<1 E.U./dL)
[2018-02-12 20:56] LABS: URINE APPEARANCE CLEAR (CLEAR); URINE COLOR YELLOW (YELLOW)
--- NOTE | 2018-02-13 06:58 | CP.PCM.PN ---
Subjective - Date & Time of Evaluation Date of Evaluation: 02/13/18 Time of Evaluation: 06:20 - Subjective Subjective: Awake, alert, confuse, no distress Reason for consultation and follow up: Cardiac evaluation of intermittent chest discomfort questionable chest pain, history of dementia Seen and examined by me and Dr. Murillo Objective - Vital Signs/Intake and Output Vital Signs (last 24 hours): Temp Pulse Resp BP Pulse Ox 97.1 F L 99 H 19 116/59 L 96 02/12/18 18:00 02/12/18 18:00 02/12/18 18:00 02/12/18 18:00 02/12/18 06:00 Intake and Output: 02/12/18 02/13/18 18:59 06:59 Intake Total 430 400 Balance 430 400 - Medications Medications: Current Medications Alprazolam (Xanax) 0.25 mg PO TID PRN; Protocol PRN Reason: Anxiety Stop: 02/18/18 10:01 Last Admin: 02/12/18 19:49 Dose: 0.25 mg Aspirin (Aspirin Chewable) 81 mg PO DAILY [facility] Last Admin: 02/12/18 10:58 Dose: 81 mg Atorvastatin Calcium (Lipitor) 20 mg PO DIN [facility] Last Admin: 02/12/18 18:23 Dose: 20 mg Docusate Sodium (Colace) 100 mg PO DAILY [facility] Last Admin: 02/12/18 10:58 Dose: 100 mg Enoxaparin Sodium (Lovenox) 30 mg SC DAILY [facility]; Protocol Last Admin: 02/12/18 18:23 Dose: 30 mg Methimazole (Tapazole) 10 mg PO DAILY [facility] Last Admin: 02/12/18 10:58 Dose: 10 mg Quetiapine Fumarate (Seroquel) 12.5 mg PO HS [facility]; Protocol Last Admin: 02/13/18 04:40 Dose: Not Given Risperidone (Risperdal Tab) 0.25 mg PO BID [facility]; Protocol Last Admin: 02/12/18 18:23 Dose: 0.25 mg - Labs Labs: 02/12/18 12:15 02/12/18 12:15 PT 11.4 SECONDS (9.4-12.5) 02/10/18 21:30 INR 1.00 02/10/18 21:30 APTT 31.9 Seconds (25.1-36.5) 02/10/18 21:30 - Constitutional Appears: Non-toxic, No Acute Distress - Head Exam Head Exam: NORMAL INSPECTION, NORMOCEPHALIC - Eye Exam Eye Exam: Normal appearance Pupil Exam: NORMAL ACCOMODATION - ENT Exam ENT Exam: Mucous Membranes Dry - Respiratory Exam Respiratory Exam: Decreased Breath Sounds, Clear to Ausculation Bilateral, NORMAL BREATHING PATTERN - Cardiovascular Exam Cardiovascular Exam: +S1, +S2 - GI/Abdominal Exam GI & Abdominal Exam: Soft, Normal Bowel Sounds - Extremities Exam Extremities Exam: Full ROM, Normal Capillary Refill - Neurological Exam Neurological Exam: Alert, Awake Additional comments: confuse - Skin Skin Exam: Dry, Normal Color, Warm Assessment and Plan - Assessment and Plan (Free Text) Assessment: A 87 year old female who came in to the ER due to intermittent left side chest discomfort started early childhood associate prior to admission. History of dementia, hypertension,hyperlipidemia, hypothyroidism,osteoarthritis. Troponin x 3 negative. Rule out acute myocardial infarction. ECHO done- LVEF 60%, Mild aortic regurgitation, Aortic sclerosis vs Mild , Moderate tricuspid regurgitation,Moderate pulmonic valvular regurgitation, No pericardial effusion. Chest pain free. Plan: Cardiac status stable Heart rate controlled Blood pressure controlled Denies chest pain or shortness of breath Off and on agitation, started on Risperdal May discharge from cardiac standpoint Continue current treatment Continue current medications Chart reviewed Discharge planning, awaiting LTC placement Will follow up Plan and treatment discussed with Dr. Murillo
--- NOTE | 2018-02-13 09:50 | PN ---
DATE: 02/12/2018 REASON FOR CONSULTATION AND FOLLOWUP: Cardiac evaluation, admitted with intermittent chest pain, dementia, so far no evidence of acute [place]. This note is in addition to dictated by our nurse practitioner. The patient had echocardiography done yesterday that revealed ejection fraction 60%-65%, normal wall motion, [id number] aortic regurgitation, eccentric jet, aortic sclerosis, mild aortic stenosis, moderate tricuspid regurgitation, RV systolic pressure of 46, [id number] pulmonary insufficiency, [id number] mitral regurgitation, moderate tricuspid regurgitation, RV systolic pressure of 46, no evidence of acute [place], and history of dementia. RECOMMENDATIONS: We will discontinue telemetry, continue aggressive medical treatment including aspirin and anti-cholesterol medication, and history of hyperthyroidism, on methimazole. TSH is 0.02. So far, no evidence of acute [place]. asymptomatic patient demented, no cardiac complaint at this time. We will treat medically. Continue baby aspirin. We will continue DVT prophylaxis as well, DVT prophylaxis to prevent in the hospital. Discharge planning. Thank you Dr. Kathleen for providing us the opportunity in taking care of the patient, Bronson Nelson. Kirstie Murillo MD
[2018-02-13] MEDS: Enoxaparin 30 mg Syringe SC SCH (11:06)
--- NOTE | 2018-02-13 16:08 | PN ---
DATE: 02/13/2018 REASON FOR CONSULTATION AND FOLLOWUP: Cardiac evaluation, chest pain. This note is an addition to dictated by nurse practitioner. So far no evidence of acute [place]. Patient underwent echo yesterday that showed ejection fraction 60%, mild aortic regurgitation, aortic sclerosis with mild , moderate tricuspid regurgitation, moderate pulmonary insufficiency. No pericardial effusion. RECOMMENDATIONS: Continue aggressive medical treatment, possible discharge planning. CVS status is stable. No further cardiac workup is planned or warranted. Continue aggressive medical treatment. So far no evidence of acute [place]. No complaint of angina symptoms. Troponin remains flat. Good LV function. Kirstie Murillo MD
--- NOTE | 2018-02-13 19:25 | DS ---
HISTORY OF PRESENT ILLNESS: The patient is 87 years old who was brought in because of chest pain. Cardiac workup is negative. Three troponins are negative. Echocardiogram is unremarkable. The patient has been confused, disoriented and combative, was on soft wrist restraints. The patient was seen and examined, doing okay. No nausea. No vomiting. No diarrhea. PHYSICAL EXAMINATION: VITAL SIGNS: She is afebrile. Pulse 66, respirations 18, blood pressure 127/71. LUNGS: Bilateral fair airflow. No rhonchi or crackle. HEART: S1 and S2, audible. ABDOMEN: Soft and nontender. No rebound. No guarding. NEUROLOGIC: She is awake and alert, but confused, disoriented. ASSESSMENT: 1. Noncardiac chest pain. 2. Severe dementia. 3. Hypothyroidism. 4. Anxiety, dementia with agitation. PLAN: Currently, she is on Xanax 0.25 mg t.i.d. p.r.n. She is on methimazole. Risperdal has been added. She is on 0.25 mg Risperdal twice a day and 0.25 at bedtime. administrative services assistant are in the process of making arrangement for subacute rehab for long-term placement. Once arrangement is made, the patient will be discharged. Neftali Kathleen MD
--- NOTE | 2018-02-13 23:20 | CON ---
DATE: 02/13/2018 HISTORY OF PRESENT ILLNESS: In short, the patient is an 87-year-old -Bh[place] female with reported history of dementia. The patient was admitted on the medical site for evaluation of chest discomfort. Psych consult was called because the patient was in delirium stage, was aggressive. This documentation writer is very familiar with this patient from previous hospitalization here in [place] which took place in 01/2018. As per report, the patient was confused, the patient was combative, trying to kick people overnight, needed to have soft restraints in her upper extremities. During this documentation writer's evaluation, the patient was calm, cooperative, seems to be comfortable. The patient reported that she feels fine. The patient was not able to understand the concept of depressed mood. The patient said that she does not know where she is, but she is here for "some evaluation." The patient reported that she lives in [place] with her family with her and kids. This documentation writer is not sure if this is correct information or not. The patient was not able to understand question about hallucinations or delusions. This documentation writer reviewed vital signs, seem to be stable. Temperature 97.9, pulse is 66, blood pressure 127/71, respirations 18, saturation is 100%. Medications reviewed. The patient on Xanax 0.25 mg three times day as needed, aspirin, Lipitor, Colace, Lovenox, methimazole. Risperdal was started by medical team 0.25 mg twice a day as well as Seroquel 12.5 mg at nighttime, we will discontinue that. It is always better for the patient to be on one medication, that is why this documentation writer added Risperdal 0.25 mg at nighttime instead of Seroquel. Labs reviewed. Coagulation reviewed. Chemistry reviewed. MENTAL STATUS EXAMINATION: The patient presented to be alert, somewhat confused, comfortable, not agitated. The patient knows that she is here for some evaluation. The patient was not able to understand the question about mood. Thought process seems to be disorganized. Thought content, the patient was agitated earlier but not with this documentation writer. Insight and judgment seems to be limited. Impulses are unpredictable. IMPRESSION: The patient has delirium on dementia. PLAN: Continue Risperdal. Family should be involved. This documentation writer is not sure if the patient has power of attorney at law. Physical therapy recommended. We will follow up with you and advise accordingly. Thank you very much for letting me participate in care of your patient. Mckenna Stahl MD
--- NOTE | 2018-02-14 08:00 | CP.PCM.PN ---
Subjective - Date & Time of Evaluation Date of Evaluation: 02/14/18 Time of Evaluation: 07:20 - Subjective Subjective: No distress, Awake, confuse Reason for consultation and follow up: Cardiac evaluation of intermittent chest discomfort questionable chest pain, history of dementia Seen and examined by me and Dr. Murillo Objective - Vital Signs/Intake and Output Vital Signs (last 24 hours): Temp Pulse Resp BP Pulse Ox 98.0 F 105 H 18 109/56 L 99 02/13/18 22:00 02/13/18 22:00 02/13/18 22:00 02/13/18 22:00 02/13/18 22:00 - Medications Medications: Current Medications Alprazolam (Xanax) 0.25 mg PO TID PRN; Protocol PRN Reason: Anxiety Stop: 02/18/18 10:01 Last Admin: 02/13/18 15:25 Dose: 0.25 mg Aspirin (Aspirin Chewable) 81 mg PO DAILY [facility] Last Admin: 02/13/18 11:03 Dose: 81 mg Atorvastatin Calcium (Lipitor) 20 mg PO DIN [facility] Last Admin: 02/13/18 18:40 Dose: 20 mg Docusate Sodium (Colace) 100 mg PO DAILY [facility] Last Admin: 02/13/18 11:05 Dose: 100 mg Enoxaparin Sodium (Lovenox) 30 mg SC DAILY [facility]; Protocol Last Admin: 02/13/18 11:06 Dose: 30 mg Methimazole (Tapazole) 10 mg PO DAILY [facility] Last Admin: 02/13/18 11:06 Dose: 10 mg Risperidone (Risperdal Tab) 0.25 mg PO BID [facility]; Protocol Last Admin: 02/13/18 18:40 Dose: 0.25 mg Risperidone (Risperdal Tab) 0.25 mg PO HS [facility]; Protocol Last Admin: 02/13/18 21:51 Dose: 0.25 mg - Labs Labs: 02/12/18 12:15 02/12/18 12:15 PT 11.4 SECONDS (9.4-12.5) 02/10/18 21:30 INR 1.00 02/10/18 21:30 APTT 31.9 Seconds (25.1-36.5) 02/10/18 21:30 - Constitutional Appears: Non-toxic, No Acute Distress - Head Exam Head Exam: NORMAL INSPECTION, NORMOCEPHALIC - Eye Exam Eye Exam: Normal appearance Pupil Exam: NORMAL ACCOMODATION - ENT Exam ENT Exam: Mucous Membranes Moist - Respiratory Exam Respiratory Exam: Clear to Ausculation Bilateral, NORMAL BREATHING PATTERN - Cardiovascular Exam Cardiovascular Exam: +S1, +S2 - GI/Abdominal Exam GI & Abdominal Exam: Soft, Normal Bowel Sounds - Extremities Exam Extremities Exam: Full ROM, Normal Capillary Refill - Neurological Exam Neurological Exam: Alert, Awake Additional comments: confuse - Psychiatric Exam Psychiatric exam: Normal Affect - Skin Skin Exam: Normal Color, Warm Assessment and Plan - Assessment and Plan (Free Text) Assessment: A 87 year old female who came in to the ER due to intermittent left side chest discomfort started mounter prior to admission. History of dementia, hypertension,hyperlipidemia, hypothyroidism,osteoarthritis. Troponin x 3 negative. Rule out acute myocardial infarction. ECHO done- LVEF 60%, Mild aortic regurgitation, Aortic sclerosis vs Mild , Moderate tricuspid regurgitation,Moderate pulmonic valvular regurgitation, No pericardial effusion. Chest pain free. Plan: Awaiting LTC placement for discharge Cardiac status stable Heart rate controlled Blood pressure controlled Denies chest pain or shortness of breath Off and on agitation, on Risperdal Continue current treatment Continue current medications Chart reviewed Will follow up Plan and treatment discussed with Dr. Murillo
[2018-02-14] MEDS: Enoxaparin 30 mg Syringe SC SCH (10:17)
--- NOTE | 2018-02-14 18:45 | CON ---
DATE OF CONSULTATION: 02/14/2018 HISTORY OF PRESENT ILLNESS: The patient is an 87-year-old -[place] female with a history of dementia and delirium. Psychiatrist has been following up with the patient on medical floor. I reviewed Dr. Stahl's assessments and recent nursing notes, which indicated that the patient has been confused, disoriented, has a history of being combative, trying to hit people and requiring soft restraints. The patient continues to be confused and only oriented to herself. However, there has been no recent noted history of aggression over the last 12 to 24 hours. Nonetheless, she appears unpredictable, as she is still disoriented and cannot provide any information regarding what year or where she is. She continues to think she is at home even though she was informed by this provider on two occasions that she is in the hospital. The patient denies any depression. She denies any acute discomfort or pain. The patient also denies any hallucinations and indicates that she has been sleeping. She admits to some anxiety only, however currently feels fine. Denies any current emotional distress at the time of my interview. Her insight and judgement are considered to be poor. MEDICATIONS: Reviewed, which include Risperdal 0.25 mg b.i.d. VITAL SIGNS: Reviewed. LABORATORY DATA: Reviewed. IMPRESSION: Delirium and dementia. RECOMMENDATIONS: We will continue with Xanax 0.25 mg p.o. t.i.d. Seroquel was discontinued as per Dr. Stahl. Risperdal was discontinued to try to prevent polypharmacy for the patient. We will closely continue to follow up the patient. Next followup will be on 02/16/2018, unless there are any new acute issues overnight. Oma Gonzales MD
--- NOTE | 2018-02-14 22:55 | PN ---
DATE: 02/14/2018 SUBJECTIVE: The patient is an 87-year-old, seen and examined, confused, disoriented, and get agitated at times, was on soft wrist restraints, but has been discontinued since she is doing better. PHYSICAL EXAMINATION: GENERAL: The patient is awake and alert, but confused and disoriented. VITAL SIGNS: She is afebrile, pulse 77, respirations 20, and blood pressure 108/49. LUNGS: Bilateral fair airflow. No rhonchi or crackle. HEART: S1 and S2 audible. ABDOMEN: Soft. Nontender. No rebound. No guarding. NEUROLOGICAL: The patient is awake, alert and oriented, able to communicate. LABORATORY DATA: There is no new lab available today. ASSESSMENT: 1. Chest pain, noncardiac. 2. Status post fall at home. I saw the patient's daughter in my office, she states she fell at home and complained of right hip pain, although the patient never expressed that issue to me. 3. Hyperthyroidism. 4. Hypertension. 5. Dementia. 6. Deconditioning and difficulty walking. PLAN: I will order for right hip and pelvic x-ray. The patient's daughter does not want her to be discharged because she got rehab for long-term placement bed in [place], but the patient's daughter, Merrill want her to be long term. She will try in [facility] in [place]. If they do not have any bed for her, she will consider [place] later on. Neftali Kathleen MD
[2018-02-14 23:07] VITALS: RESP 18
--- NOTE | 2018-02-15 09:29 | RAD ---
PROCEDURE: Radiographs of the pelvis and bilateral hips HISTORY: fall at home /pain COMPARISON: None. FINDINGS: BONES: Pelvis: Unremarkable. Right hip:Unremarkable. Left hip:Unremarkable. JOINTS: Right hip: Unremarkable. Left hip: Unremarkable. Sacroiliac Joints: Unremarkable. Pubic symphysis: Unremarkable. SOFT TISSUES: Normal. OTHER FINDINGS: None. IMPRESSION: Unremarkable radiographs of the hips and pelvis.
[2018-02-15] MEDS: Enoxaparin 30 mg Syringe SC SCH (09:57)
--- NOTE | 2018-02-15 21:04 | PN ---
DATE: 02/15/2018 SUBJECTIVE: The patient is an 87-year-old, seen and examined, lying in bed, seems to be somewhat confused, but cooperative, has been not eating well. PHYSICAL EXAMINATION: VITAL SIGNS: She is afebrile, pulse 93, respirations 18, and blood pressure 119/64. LUNGS: Bilateral fair airflow. No rhonchi or crackle. HEART: S1 and S2 audible. ABDOMEN: Soft. Nontender. No rebound. No guarding. NEUROLOGICAL: The patient is awake and alert, somewhat confused and disoriented. LABORATORY DATA: The patient had x-ray of the hip and the pelvis done yesterday, seems to be unremarkable. ASSESSMENT AND PLAN: 1. Dementia with agitation at times. 2. Hyperthyroidism. 3. Hypertension. 4. Status post fall. PLAN: The patient was scheduled to be discharged over the weekend, but her daughter has had concerns she got placement in [place], but the patient is not very happy with that facility. She is exploring into a nearby facility. She has an appointment to see somebody in [facility] that is scheduled on Friday. Until that time,she does not want mother to be discharged. We will address this issue in the morning. Neftali Kathleen MD
--- NOTE | 2018-02-16 08:45 | PN ---
DATE: 02/14/2018 REASON FOR CONSULTATION AND FOLLOWUP: Cardiac evaluation, chest pain. This note is an addition to dictated by our nurse practitioner. The patient is lying comfortably. No complaint of chest pain. No evidence of acute [place]. Echo shows preserved LV function, ejection fraction 60%, mild MR, aortic stenosis versus mild , moderate tricuspid regurgitation, moderate pulmonary insufficiency. RECOMMENDATION: Continue current treatment. CVS status is stable. Pending for discharge planning. No active cardiac problem, no anginal symptom, no arrhythmia, no evidence of congestive heart failure. We will sign off. We are glad to follow p.r.n. Thank you Dr. Kathleen for providing the opportunity in taking care of the patient, Bronson Nelson. We will follow with you. Kirstie Murillo MD
[2018-02-16] MEDS: Enoxaparin 30 mg Syringe SC SCH (10:15)
--- NOTE | 2018-02-16 19:21 | PN ---
DATE: 02/16/2018 SUBJECTIVE: The patient was followed up today. The patient has history of dementia. The patient has combative behavior. The patient over the weekend presented well. This financial underwriter reviewed Dr. Gonzales's notes. As per Dr. Gonzales's notes, for the past 24 hours, the patient was not having any behavioral outbursts but based on today's presentation, the patient was combative, required Geodon earlier today while this financial underwriter was rounding on the medical floor. The patient was screaming, "get out of my face, I don't want to talk to nobody." The patient required to have injection of Ativan 0.5 mg because the patient was combative and not willing to take medication by mouth as per nurse. The patient tried to kick her without any obvious reasons. VITAL SIGNS: Seem to be stable. Temperature 98, pulse is 91, blood pressure 128/65, respirations 18, oxygen saturation is 100. MEDICATIONS: Reviewed. The patient is on Xanax 0.25 mg three times day as needed, aspirin, Lipitor, Colace, Lovenox, Ativan 0.5 mg b.i.d. will be started. The patient is on methimazole, Risperdal 0.25 mg twice a day as well as at the nighttime. The patient is on Geodon 10 mg as needed. LABORATORY DATA: Labs reviewed. Microbiology reviewed. MENTAL STATUS EXAMINATION: The patient presented to be angry, irritable, and aggressive. The patient was screaming at this financial underwriter, "get out of my face." The patient was not able to hold the interview. The patient is obviously paranoid and guarded. Impulses are not predictable. IMPRESSION: Rule out dementia with behavioral disturbances, rule out delirium. PLAN: This financial underwriter will add small dose of benzodiazepines. The patient was on Xanax 0.25 mg three times day p.r.n. This financial underwriter will give 0.25 mg twice a day scheduled. This financial underwriter will discontinue Ativan p.o. Ativan IM was given to the patient. Risperdal will be increased to 0.5 mg at the nighttime. The patient is on one-to-one. We will follow up and advise accordingly. Thank you very much for letting me to participate in the care of your patient Mckenna Stahl MD [facility] # [id number]
--- NOTE | 2018-02-17 01:49 | PN ---
DATE: SUBJECTIVE: Patient is 87 years old seen and examined. She seems to be stable, comfortable, sitting in chair. She usually looks better in the morning hours, lethargic in the evening. Yesterday, she required Geodon. She is still awaiting placement. PHYSICAL EXAMINATION: VITAL SIGNS: She is afebrile, pulse 91, respirations 18 and blood pressure 128/65. LUNGS: Bilateral fair airflow. No rhonchi or crackle. HEART: S1, S2 audible. ABDOMEN: Soft, nontender. No rebound. No guarding. NEUROLOGICAL: Patient is awake, alert, able to communicate, unstable gait. ASSESSMENT: 1. Worsening dementia. 2. Hypertension. 3. Hyperthyroidism. 4. Hyperlipidemia. PLAN: Patient is currently stable on current medication. She requires antipsychotic by evening hours. Still awaiting placement since daughter did not want her to go to [place] and wants her to be in nearby facility that she states she is going to visit today. Neftali Kathleen MD
[2018-02-17] MEDS: Enoxaparin 30 mg Syringe SC SCH (09:43)
--- NOTE | 2018-02-17 11:19 | PN ---
DATE: 02/17/2018 FOLLOWUP NOTE SUBJECTIVE: The patient was seen today. The patient presented to be in tearful mood. The patient expressed no complaints at this moment, but reported to be upset. The patient did not know where she is. The patient presented with some psychomotor retardation. As per nursing report, the patient was combative earlier overnight. The patient had episodes of confusion as well as restless behavior, but no physical aggression. The patient was refusing to take Risperdal yesterday over nighttime, but seems to have fair sleep. Going back to the patient's presentation, the patient reported to be upset for unknown reason. The patient was willing to watch TV and this check writer offered to turn the TV on. The patient seems to be appreciative. As per medical team report, the patient is waiting for placement and family did not want the patient to be placed in [facility]. This check writer reviewed vital signs, seems to be stable. Temperature 98.6, pulse is 83, blood pressure 134/58, respirations 18, oxygen saturation is 96. Medications reviewed. The patient is on Xanax 0.25 mg twice a day schedule, aspirin 81 mg, Lipitor, Colace, Lovenox, methimazole, Risperdal 0.25 mg twice a day and 0.5 mg at the nighttime and Geodon as needed for agitation and aggression 10 mg every 6 hours p.r.n. Labs reviewed. There are no new labs. MENTAL STATUS EXAMINATION: As this check writer described above, the patient has episodes of agitation, restless behavior yesterday afternoon. The patient was trying to climb off the bed, was agitated. Today, the patient is on depressed mood, was tearful, affect was flat, thought process disorganized. Thought content, the patient denied thoughts of harming herself or others. Denied intents or plan. Insight and judgment seems to be impaired. Impulses are unpredictable. IMPRESSION: Delirium and dementia. PLAN: Risperdal was started, Xanax was scheduled. Placement discussed with the family by Computing Architect. Continue current management. Continue current medication. This check writer will follow up on this patient every other day. Should you have any questions, give me a call back. Thank you very much for letting me participate in the care of your patient. Mckenna Stahl MD [facility] # [id number]
[2018-02-17 15:34] VITALS: BP 125/54; PULSE 82; TEMP 98.5; O2SAT 100
--- NOTE | 2018-02-18 01:19 | PN ---
DATE: 02/17/2018 SUBJECTIVE: The patient is an 87-year-old, seen and examined, lying in bed, seems to be comfortable, seems to be cooperative. Eating well. Ambulates with walker with assistance. PHYSICAL EXAMINATION: VITAL SIGNS: She is afebrile, pulse 82, respirations 18 and blood pressure 125/54. LUNGS: Bilateral fair airflow. No rhonchi or crackles. HEART: S1, S2 audible. ABDOMEN: Soft, nontender. No rebound. No guarding. NEUROLOGICAL: The patient is awake and alert, but confused and disoriented. ASSESSMENT AND PLAN: 1. Dementia. 2. Hyperthyroidism. 3. Hypertension. 4. Unstable gait. The patient is risk to herself. She is not capable of living alone. Family was trying to get in touch with local fdc, but because of her dementia and agitation at times, she was not accepted in any local fdc. Daughter is trying to get her transferred to [facility]. Paper will be exchanged, if she is accepted, she will be transferred there. Otherwise, she has to go to [facility]. Neftali Kathleen MD
--- NOTE | 2018-02-18 09:28 | CP.PCM.PCO ---
Physician Communication Note - Physician Communication Note Physician Communication Note: pt was discharged
== END 2018-02-17 21:13 | DRG 884 ==
LOC: ED 18:31 → ERH 23:07 → 2RSO 02-11 00:54 → OBSVTOIN 02-12 11:56 → 5RSO 02-12 22:13
PROVIDERS: ADMIT Internal Medicine; ATTEND Internal Medicine
DX: F03.91 Unspecified dementia, unspecified severity, with behavioral disturbance (principal); R07.89 Other chest pain; I10 Essential (primary) hypertension; E03.9 Hypothyroidism, unspecified; M15.9 Polyosteoarthritis, unspecified; R45.1 Restlessness and agitation; E05.90 Thyrotoxicosis, unspecified without thyrotoxic crisis or storm; E78.5 Hyperlipidemia, unspecified; I08.2 Rheumatic disorders of both aortic and tricuspid valves; I44.0 Atrioventricular block, first degree; I45.10 Unspecified right bundle-branch block; Z78.1 Physical restraint status; Z79.82 Long term (current) use of aspirin